=== PATIENT | male | born 1965 | race Caucasian/White ===

== ENCOUNTER 2018-12-25 08:22 | Day surgery (SDC) | payer OTHER ==
[~2018-12-25 08:22] MED LIST: LIDOCAINE HCL 1% MPF 30 SOL ONE; PROPOFOL 500 MG/50 ML EMU IV ONE
[2018-12-25 08:55] VITALS: TEMP 97.7
[2018-12-25 10:34] VITALS: BP 114/90; PULSE 62; RESP 18; O2SAT 97
== END 2018-12-25 10:54 | disposition home or self-care (01) | DRG 951 ==
LOC: SURG 08:22
PROVIDERS: ATTEND Surgery
DX: Z12.11 Encounter for screening for malignant neoplasm of colon (principal); Z80.0 Family history of malignant neoplasm of digestive organs
CPT/HCPCS: J2001; J2704